=== PATIENT | male | born 1940 | race Caucasian/White ===

== ENCOUNTER 2017-05-18 15:11 | Emergency (ER) | payer MEDICARE ==
[~2017-05-18] VITALS: Ht 172.7 cm; Wt 89.4 kg
[~2017-05-18 15:11] MED LIST: AMLO10TA2 PO; ASPI-39 PO; FERR325T58 PO; GABA-585 PO; GLIM2TAB2 PO; HYDR-2868 PO; INSU100V13 SQ; LISI40TA PO; METO5TAB4 PO
[2017-05-18 15:41] LABS: BASO # 0.1 x10^3/uL (0.0-0.2); BASO % 2 % (0-3); EOS % 4 % (0-3); HEMATOCRIT 33.1 % (39.0-53.0); HEMOGLOBIN 10.8 g/dL (13.0-17.5); LYMPH # 2.3 x10^3/uL (1.0-4.8); LYMPH % 35 % (24-48); MEAN CORPUSCULAR HEMOGLOBIN 25 pg (25-35); MEAN CORPUSCULAR HGB CONC 33 g/dL (31-37); MEAN CORPUSCULAR VOLUME 77 fL (79-100); MONO % 11 % (0-9); NEUT % 48 % (31-73); PLATELET COUNT 202 x10^3/uL (140-400); WHITE BLOOD COUNT 6.5 x10^3/uL (4.0-11.0)
[2017-05-18] MEDS ORDERED: MECLIZINE HCL 12.5 MG TABLET. PO ONE (15:45)
[2017-05-18 15:57] LABS: CALCIUM 9.6 mg/dL (8.5-10.1); CREATININE 2.3 mg/dL (0.7-1.3); GFR 27.9; POTASSIUM 3.8 mmol/L (3.5-5.1)
[2017-05-18 16:02] LABS: TOTAL BILIRUBIN 0.4 mg/dL (0.2-1.0); TOTAL PROTEIN 7.9 g/dL (6.4-8.2)
[2017-05-18 16:31] LABS: BILIRUBIN,URINE NEGATIVE (NEG); GLUCOSE,URINE NEGATIVE (NEG); NITRITE,URINE NEGATIVE (NEG); PROTEIN,URINE 100 mg/dL (NEG-TRACE); UROBILINOGEN,URINE 0.2 mg/dL (0.2 mg/dL)
--- NOTE | 2017-05-18 16:42 | RAD ---
RS Compliance Statement: One or more of the following individualized dose reduction techniques were utilized for this examination: 1. Automated exposure control 2. Adjustment of the mA and/or kV according to patient size 3. Use of iterative reconstruction technique CT HEAD WITHOUT CONTRAST History: DIZZINES, Comparison: CT head without contrast, 2 days ago. Technique: Axial images are obtained of the head from the skull base through the vertex without IV contrast. Findings: No mass-effect, midline shift, extra-axial fluid collection, hemorrhage, or obvious acute infarction is identified. Basilar cisterns are patent. The ventricles and sulci are prominent, consistent with age-related cerebral atrophy. There is periventricular white matter hypoattenuation. This is a nonspecific finding but is commonly due to chronic small vessel ischemic disease. Bone windows demonstrate no acute calvarial abnormality. The visualized paranasal sinuses are clear. Mastoid air cells are well aerated. IMPRESSION: No acute intracranial abnormality. Electronically signed by: Grupo Stern MD (05/18/2017 4:39 PM) [facility] [place]
--- NOTE | 2017-05-18 16:47 | EKG ---
[facility] [address] [place] [address] Test Date: 2017-05-18 Test Time: 15:23:38 Pat Name: BRIEN SHARMA Department: Room: Gender: M Roofer: : 1940 Requested By: BOSSMAN PETERS Order Number: [id number] Reading MD: Lucero Ivory Measurements Intervals Datil Rate: 56 P: 31 CT: 164 QRS: 9 QRSD: 86 T: 22 QT: 416 QTc: 404 Interpretive Statements SINUS RHYTHM ATRIAL PREMATURE COMPLEX(ES) Electronically Signed On 05-19-2017 17:02:03 CDT by Lucero Ivory
[2017-05-18 16:54] LABS: BACTERIA,URINE 0 /HPF (0-FEW)
[2017-05-18] MEDS ORDERED: cloNIDine HCL 0.1 MG TABLET PO ONE (17:15)
--- NOTE | 2017-05-18 17:54 | PHYS DOC ---
Past Medical History Past Medical History: Diabetes-Type II, High Cholesterol, Hypertension Past Surgical History: Other Additional Past Surgical Histo: bi-lat shoulder sx Alcohol Use: None Drug Use: None Adult General Chief Complaint Chief Complaint: DIZZY/LIGHT HEADED HPI HPI Patient is a 76 year old male with chronic intermittent no vertigo who presents with dizziness and lightheadedness with position change and head movement to the left. Was evaluated at [facility] in [facility] for the same 2 days ago. Reports clinic complete workup including CT and lab which were normal. Patient states symptoms improved initially but returned today while driving. Patient states he also feels off balance walking but does not lead to a particular side. 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 He is scheduled to see an ENT and 30 days. He denies neck pain, extremity weakness or loss of sensation. No chest pain or palpitations. No other acute symptoms or complaints. Of note, the patient's blood pressure is elevated on ED arrival. The pressure is 190s over 105. Patient states he is complaining compliant with his blood pressure medication and that his blood pressure is normally well controlled. He is accompanied at bedside by his spouse. [] Review of Systems Review of Systems ROS as per HPI. Current Medications Current Medications Current Medications Medications (Trade) Dose Ordered Sig/Hipolito Start Time Stop Time Status Last Admin Dose Admin Clonidine HCl (Catapres) 0.2 mg 1X ONCE 05/18/17 17:15 05/18/17 17:16 DC 05/18/17 17:17 0.2 MG Meclizine HCl (Antivert) 25 mg 1X ONCE 05/18/17 15:45 05/18/17 15:46 DC 05/18/17 16:03 25 MG Allergies Allergies Allergies Coded Allergies Type Severity Reaction Last Updated Verified No Known Allergies Allergy Unknown 12/29/15 Yes Physical Exam Physical Exam Constitutional: Well developed, well nourished, no acute distress, non-toxic appearance. [] HENT: Normocephalic, atraumatic, bilateral external ears normal, oropharynx moist, no oral exudates, nose normal. [] Eyes: PERRLA, nystagmus, with leftward gaze. Fatigues on exam.. [] Neck: Normal range of motion, no tenderness, supple, no stridor. [] Cardiovascular:Heart rate regular rhythm, no murmur [] Lungs & Thorax: Bilateral breath sounds clear to auscultation. [] Abdomen: Bowel sounds normal, soft, no tenderness. [] Skin: Warm, dry, no erythema.. [] Back: No tenderness. [] Extremities: No tenderness. [] Neurologic: Alert and oriented X 3, cranial nerves II through XII grossly intact , normal motor function, normal sensory function, no focal deficits noted. [] Psychologic: Affect normal, judgement normal, mood normal. [] Current Patient Data Vital Signs Vital Signs Date Time Temp Pulse Resp B/P (MAP) Pulse Ox O2 Delivery O2 Flow Rate FiO2 05/18/17 18:11 54 19 05/18/17 18:02 98 05/18/17 17:17 196/81 05/18/17 15:13 97.9 Room Air 97.9 Lab Values Laboratory Tests Test 05/18/17 15:17 05/18/17 15:25 05/18/17 16:15 Glucose (Fingerstick) 88 mg/dL (70-99) White Blood Count 6.5 x10^3/uL (4.0-11.0) Red Blood Count 4.30 x10^6/uL (4.30-5.70) Hemoglobin 10.8 g/dL (13.0-17.5) L Hematocrit 33.1 % (39.0-53.0) L Mean Corpuscular Volume 77 fL (79-100) L Mean Corpuscular Hemoglobin 25 pg (25-35) Mean Corpuscular Hemoglobin Concent 33 g/dL (31-37) Red Cell Distribution Width 14.0 % (11.5-14.5) Platelet Count 202 x10^3/uL (140-400) Neutrophils (%) (Auto) 48 % (31-73) Lymphocytes (%) (Auto) 35 % (24-48) Monocytes (%) (Auto) 11 % (0-9) H Eosinophils (%) (Auto) 4 % (0-3) H Basophils (%) (Auto) 2 % (0-3) Neutrophils # (Auto) 3.1 x10^3uL (1.8-7.7) Lymphocytes # (Auto) 2.3 x10^3/uL (1.0-4.8) Monocytes # (Auto) 0.7 x10^3/uL (0.0-1.1) Eosinophils # (Auto) 0.2 x10^3/uL (0.0-0.7) Basophils # (Auto) 0.1 x10^3/uL (0.0-0.2) Sodium Level 142 mmol/L (136-145) Potassium Level 3.8 mmol/L (3.5-5.1) Chloride Level 104 mmol/L (98-107) Carbon Dioxide Level 27 mmol/L (21-32) Anion Gap 11 (6-14) Blood Urea Nitrogen 32 mg/dL (8-26) H Creatinine 2.3 mg/dL (0.7-1.3) H Estimated GFR (Cockcroft-Gault) 27.9 BUN/Creatinine Ratio 14 (6-20) Glucose Level 99 mg/dL (70-99) Calcium Level 9.6 mg/dL (8.5-10.1) Total Bilirubin 0.4 mg/dL (0.2-1.0) Aspartate Amino Transferase (AST) 26 U/L (15-37) Alanine Aminotransferase (ALT) 26 U/L (16-63) Alkaline Phosphatase 80 U/L (46-116) Total Protein 7.9 g/dL (6.4-8.2) Albumin 4.0 g/dL (3.4-5.0) Albumin/Globulin Ratio 1.0 (1.0-1.7) Urine Collection Type Unknown Urine Color Yellow Urine Clarity Clear Urine pH 7.0 Urine Specific [place] 1.015 Urine Protein 100 mg/dL (NEG-TRACE) Urine Glucose (UA) Negative mg/dL (NEG) Urine Ketones (Stick) Negative mg/dL (NEG) Urine Blood Negative (NEG) Urine Nitrite Negative (NEG) Urine Bilirubin Negative (NEG) Urine Urobilinogen Dipstick 0.2 mg/dL (0.2 mg/dL) Urine Leukocyte Esterase Negative (NEG) Urine RBC 6-10 /HPF (0-2) Urine WBC 1-4 /HPF (0-4) Urine Bacteria 0 /HPF (0-FEW) Laboratory Tests 05/18/17 15:25 Laboratory Tests 05/18/17 15:25 EKG EKG EKG:sinus jennifer, rate 56, QTC 404. [] Radiology/Procedures Radiology/Procedures [CT head: NAD per radiology report. ] Course & Med Decision Making Course & Med Decision Making Pertinent Labs and Imaging studies reviewed. (See chart for details) [Patient's dizziness produces on exam with fatigable nystagmus. Dizziness resolved and blood pressure improved with treatment. Patient ambulates with steady gait. Imaging and lab work nonacute. Recommend PCP follow-up for further management. Return precautions reviewed.] Dragon Disclaimer Dragon Disclaimer This electronic medical record was generated, in whole or in part, using a voice recognition dictation system. Departure Departure Impression: Primary Impression: Vertigo Disposition: 09 ADMITTED INPATIENT Condition: GOOD Referrals: KALLIE YOUNG MD (PCP) Patient Instructions: Benign Positional Vertigo BOSSMAN PETERS DO May 18, 2017 17:54
[2017-05-18 18:11] VITALS: BP 178/68
== END 2017-05-18 18:30 | disposition home or self-care (01) ==
LOC: ER 15:11
DX: R42 Dizziness and giddiness (principal); H91.92 Unspecified hearing loss, left ear; E11.9 Type 2 diabetes mellitus without complications; E78.00 Pure hypercholesterolemia, unspecified; I10 Essential (primary) hypertension
CPT/HCPCS: 36415; 70450; 80053; 81001; 82962; 85025; 93005; 99285; J8597